=== PATIENT | male | born 1980 ===

== ENCOUNTER 2022-07-22 19:00 | Emergency (ER) | payer SELFPAY ==
[2022-07-22] VITALS (26 sets, daily range): BP systolic 125–209; BP diastolic 77–114; PULSE 86–133; RESP 11–33; TEMP 36.5; O2SAT 93–99; BMI 31.1
--- NOTE | 2022-07-22 18:57 | DI.RAD.S_ITS ---
PROCEDURE: XR ANKLE RT 2V INDICATIONS: injury TECHNIQUE: 2 views of the ankle were acquired. COMPARISON: None. FINDINGS: Bones: Fracture of the distal fibula above the syndesmosis. Fracture of the medial malleolus. Posterior malleolus fracture. There is severe lateral displacement of the talus in relation to the distal tibia. No suspicious bony lesions. Soft tissues: Tibiotalar joint effusion is present. Achilles tendon appears normal. IMPRESSION: Trimalleolar fracture with lateral displacement of the talus in relation to the distal tibia. Dictated by: Ole Coyne M.D. on 07/22/2022 at 19:53 Approved by: Ole Coyne M.D. on 07/22/2022 at 19:56
--- NOTE | 2022-07-22 19:28 | DI.RAD.S_ITS ---
PROCEDURE: XR ANKLE RT MIN 3V INDICATIONS: post reduction TECHNIQUE: 3 views of the ankle were acquired. COMPARISON: [facility], , XR ANKLE RT 2V, 07/22/2022, 19:09. FINDINGS: Bones: There is improved alignment status post closed reduction of the previously described trimalleolar right ankle fracture. External splint limits evaluation of fine bony detail. Soft tissues: External splint also limits evaluation of soft tissue detail. IMPRESSION: 1. Improved alignment status post closed reduction of previously described trimalleolar right ankle fracture. Dictated by: Abram Wild M.D. on 07/22/2022 at 22:05 Approved by: Abram Wild M.D. on 07/22/2022 at 22:06
[2022-07-22] MEDS: HYDROMORPHONE 0.5 MG INJ IV (19:44)
[2022-07-22] MEDS: KETAMINE 500 MG/5 ML INJ 105 MG IV (19:48)
--- NOTE | 2022-07-22 20:22 | ED.LOWEXIN ---
HPI - Extremity Injury (Lower) General Chief Complaint: Extremity Injury, Lower Stated Complaint: Ankle Dislocation Time Seen by Provider: 07/22/22 19:04 Source: EMS Mode of arrival: EMS History of Present Illness HPI Narrative: 42-year-old gentleman with no significant medical history was walking and tripped/stumbled rolled his foot and has an obvious dislocation with significant tenting in bruising to the lateral malleolus. Significant pain and tenderness is appreciated. He does have good capillary refill distally. He denies any recent fever, cough, cold, chills, abdominal pain, headaches, hip or knee pain or chronic problems. He has not been having any increasing weakness not notice that the foot has been dragging or numb. No headaches. Related Data Previous Rx's Medication Instructions Recorded oxycodone-acetaminophen 5 mg-325 1 tab PO Q6H PRN pain #20 tabs 07/22/22 mg tablet Allergies Allergy/AdvReac Type Severity Reaction Status Date / Time INGREDIENT: NO KNOWN - NO Allergy Unknown Uncoded 07/22/22 19:00 KNOWN DRUG ALLERGY Review of Systems Review of Systems Narrative: Remainder of complete review of systems is otherwise unremarkable except for that included in the HPI. Patient History Social History Smoking Status: Current every day smoker Smoking Status: Current every day smoker alcohol intake frequency: a few times a month Substance Use Type: marijuana Exam Initial Vital Signs Initial Vital Signs: Vital Signs Temperature 97.7 F 07/22/22 18:58 Pulse Rate 120 H 07/22/22 18:58 Respiratory Rate 16 07/22/22 18:58 Blood Pressure 195/111 H 07/22/22 18:58 Pulse Oximetry 96 07/22/22 18:58 Oxygen Delivery Method 07/22/22 18:58 General: In obvious distress but able to completely cooperate with exam. Well-nourished well-developed HEENT: Moist mucous membranes, normal sclera with reactive pupils, Respiratory: Lungs are clear to auscultation, no wheezing no rales no rhonchi. Full and symmetrical air movement Cardiac: Regular rate and rhythm no murmurs no bruits Abdomen: Soft, nontender, good bowel tones, no flank pain Skin: Warm and dry, no rashes Neurologic: Grossly neurologically intact with no obvious asymmetries or abnormalities Extremities: Significant deformity with what appears to be an obvious fracture dislocation right ankle with no injury to the knee or hip. Psych: Cooperative, appropriate insight and affect Procedures Orthopedic Fracture Reduction Right ankle: Time of procedure: 21:45 Time Out Performed: Yes Side: right Fracture Reduction Location: other (ankle, trimalleolar fracture) Analgesia: procedural sedation Technique: direct manipulation Post Reduction X-rays Demonstrate: anatomical reduction Post-reduction neuro exam: intact Post-reduction vascular exam: intact Splint Applied: Yes Patient Tolerated Procedure: Well Orthopedic Splinting/Casting Right ankle : Time of procedure: 21:33 Side: right Lower Extremity Injury Location: ankle Lower Extremity Immobilizer: posterior splint and stirrup splint Other Orthopedic Equipment: crutches Post splinting neuro exam: intact Post splinting vascular exam: intact Placed by: Provider Procedural Sedation Time of procedure: 21:45 Time out performed: Yes Indication: fracture/dislocation reduction ASA Class: II Time of Last PO Intake: 14:00 Preparation: desk monitor applied, pulse oximeter, capnometry used, supplemental O2 applied, suction/airway equipment at bedside and IV secured Ketamine dose (mg): 105 Intraservice time/total sedation time (min): 13 ED Sedation Level: Moderate (Concious) Patient Tolerated Procedure: Well Complications: none Course Orders Ordered: ED Orders 07/22/22 18:57 XR ankle RT 2V Stat 07/22/22 19:28 XR ankle RT min 3V Stat Hydromorphone HCl (Hydromorphone 0.5 Mg Inj) 0.5 mg IV Q15MIN PRN PRN Reason: Pain, Last Admin: 07/22/22 19:44 Dose: 0.5 mg Documented By: DARIN Discontinued Medications Ketamine HCl (Ketamine 500 Mg/5 Ml Inj) 105 mg 1 mg/kg (105 mg) IV NOW ONE Stop: 07/22/22 19:29 Last Admin: 07/22/22 19:48 Dose: 105 mg Documented By: DARIN Ondansetron HCl (Ondansetron 4 Mg/2 Ml Inj) 4 mg IV NOW ONE Stop: 07/22/22 19:19 Last Admin: 07/22/22 20:40 Dose: Not Given Documented By: DARIN Vital Signs Vital signs: Vital Signs - 8 hr 07/22/22 18:58 07/22/22 19:48 07/22/22 20:09 Temperature 97.7 F Pulse Rate 120 H 112 H 115 H Respiratory Rate 16 14 22 Blood Pressure 195/111 H 173/107 H Pulse Oximetry 96 99 99 Oxygen Delivery Method Room Air 07/22/22 20:10 07/22/22 20:10 07/22/22 19:53 Temperature Pulse Rate 111 H 133 H Respiratory Rate 18 33 H Blood Pressure 170/101 H 209/112 H Pulse Oximetry 98 93 Oxygen Delivery Method 07/22/22 19:58 07/22/22 19:05 07/22/22 20:00 Temperature Pulse Rate 128 H 123 H 131 H Respiratory Rate 15 12 24 Blood Pressure 184/114 H 171/102 H Pulse Oximetry 98 99 Oxygen Delivery Method 07/22/22 20:16 07/22/22 20:16 07/22/22 20:21 Temperature Pulse Rate 105 H Respiratory Rate 18 Blood Pressure 165/98 H 155/78 H Pulse Oximetry 97 Oxygen Delivery Method 07/22/22 20:21 07/22/22 20:26 07/22/22 20:26 Temperature Pulse Rate 108 H 99 H Respiratory Rate 17 11 L Blood Pressure 149/90 H Pulse Oximetry 97 98 Oxygen Delivery Method 07/22/22 20:30 07/22/22 20:30 Temperature Pulse Rate 103 H Respiratory Rate 17 Blood Pressure 151/98 H Pulse Oximetry 98 Oxygen Delivery Method MDM - Extremity Injury (Lower) Imaging Data X-ray right ankle: Radiologist's Impression: FINDINGS:? ? Bones:? Fracture of the distal fibula above the syndesmosis.? Fracture of the medial malleolus.? Posterior malleolus fracture.? There is severe lateral displacement of the talus in relation to the distal tibia.? No suspicious bony lesions.? ? Soft tissues:? Tibiotalar joint effusion is present.? Achilles tendon appears normal.? ? ? IMPRESSION:? Trimalleolar fracture with lateral displacement of the talus in relation to the distal tibia. ? Dictated by: Ole Coyne M.D. on 07/22/2022 at 19:53 ? ? Postreduction films show adequate anatomic alignment MDM Narrative Medical decision making narrative: Otherwise healthy 42-year-old gentleman tripped had an inversion injury to the ankle with a trimalleolar fracture dislocation. With conscious sedation it was reduced and splinted. Pain is controlled. Reviewed need for definitive treatment and orthopedic follow-up. Briefly discussed with Dr. Jones, orthopedist on-call who agrees with plan and home discharge with patient contacting the office tomorrow. Clear discussion with the patient that this is an unstable fracture, he cannot walk on it. He is given crutches and maneuvers nicely with them. Discussed adequate pain control elevation and ice. He is safe for home discharge Discharge Plan Departure Patient Disposition: Home Clinical Impression: Closed trimalleolar fracture of ankle Qualifiers: Encounter type: initial encounter Laterality: right Qualified Code(s): S82.851A - Displaced trimalleolar fracture of right lower leg, initial encounter for closed fracture Closed dislocation of ankle Qualifiers: Encounter type: initial encounter Laterality: right Qualified Code(s): S93.04XA - Dislocation of right ankle joint, initial encounter Instructions: DI for Ankle Fracture Activity Restrictions/Additional Instructions: Thank you for coming in today Your ankle was dislocated and also has 3 areas of broken bone. You tolerated the sedation well and the ankle looks much better after it is reduced and the splint is in place. This is still a very unstable fracture, do not try and walk on it. For definitive treatment you will need to follow-up with [facility] orthopedic Surgeons. Please call their office tomorrow at [phone]. Explained that you are in the emergency department, you had a ?trimalleolar ankle fracture dislocation, and need to be seen in follow-up for definitive treatment? Using 400 mg of ibuprofen (2 inpo-rqm-[id number] pills) and 1 Tylenol every 6 hours can be very helpful in controlling pain. For severe pain you can add a Percocet to this combination If you have new findings, pain cannot be controlled or additional concerns, please feel free to return to the emergency department Prescriptions: New oxycodone-acetaminophen 5-325 mg tablet 1 tab PO Q6H PRN (Reason: pain) Qty: 20 0RF Referrals: Med Jones MD [Physician] -
[2022-07-22] MEDS: OXYCODONE/APAP 5/325 PREPACK 1 BOTTLE MISC (21:36)
[2022-07-22] MEDS: OXYCODONE/ACETAMINOPHEN 5/325 TABLET 1 TAB PO (21:36)
[2022-07-22] MEDS: KETOROLAC 30 MG/ML VIAL 15 MG IV (21:36)
== END 2022-07-22 21:51 | disposition home or self-care (01) ==
PROVIDERS: Emergency Provider Emergency Medicine
DX: S82.851A Displaced trimalleolar fracture of right lower leg, initial encounter for closed fracture (principal); W01.0XXA Fall on same level from slipping, tripping and stumbling without subsequent striking against object, initial encounter
CPT/HCPCS: 27818; 73600; 73610; 96374; 96375; 99152; 99284; J1170; J1885

== ENCOUNTER → 2022-07-26 08:45 | Outpatient (CLI) | payer SELFPAY ==
--- NOTE | 2022-07-26 08:52 | DI.CT.S_ITS ---
PROCEDURE: CT LE RT WO CON INDICATIONS: CLOSED TRAUMATIC DISPLACED TRIMALLEOLAR FRACTURE TECHNIQUE: Noncontrast 1-1.5 mm axial sections acquired from above the tibiotalar joint to the bottom of the calcaneus, with coronal and sagittal reformats. COMPARISON: [facility], CR, XR ANKLE RT MIN 3V, 07/22/2022, 20:02. FINDINGS: Image quality: Excellent. Bones: Again noted is acute slightly comminuted oblique tear through distal fibular shaft with posterior and slight lateral displacement at fracture site and up to 6 mm diastasis. Additional smaller fractured fragments are seen displaced anterior and laterally. There is also a slightly comminuted and oblique fracture involving medial malleolus with fracture line extending to medial ankle mortise with minimal anterior and medial displacement at fracture site and up to 4 mm diastasis. Smaller medially displaced fractured fragments are noted within medial ankle mortise. A comminuted fracture is also noted involving posterior lateral aspect of distal tibia extending to posterior lateral distal tibial plafond with slight dorsal and lateral displacement at fracture site and up to 2 mm diastasis. No other fracture or dislocation is seen. No suspicious intraosseous lesion. Soft tissues: There is moderate tibiotalar joint effusion. No gross full-thickness ankle tendon rupture. Soft tissue edema and swelling surrounding ankle joint is seen. Achilles tendon is intact. No other abnormal soft tissue calcifications. IMPRESSION: 1. Acute comminuted and displaced trimalleolar fracture as described in detail above. 2. Moderate joint effusion and moderate ankle soft tissue swelling. Small displaced calcified fragments are noted within medial ankle mortise. Slight widening of medial and lateral ankle mortise. No full-thickness ankle tendon rupture. Dictated by: Champ Lynch M.D. on 07/26/2022 at 10:20 Approved by: Champ Lynch M.D. on 07/26/2022 at 10:41
== END ==
LOC: CT 08:50
PROVIDERS: Referring Provider Orthopaedic Surgery; Visit Provider Orthopaedic Surgery
DX: S82.851A Displaced trimalleolar fracture of right lower leg, initial encounter for closed fracture (principal)
CPT/HCPCS: 73700

== ENCOUNTER 2022-07-26 09:33 | Emergency (ER) | payer SELFPAY ==
[2022-07-26 10:04] VITALS: BP 125/98; PULSE 121; RESP 15; TEMP 36.1; O2SAT 99; BMI 31.1
--- NOTE | 2022-07-26 11:20 | PC.NURSE ---
went to lobby to bring pt into a room,unable to locate,will attempt again
--- NOTE | 2022-07-26 11:49 | ED.RECABL ---
HPI - Recheck/Abnormal Lab/Rx General Chief Complaint: Recheck/Abnormal Lab/Rx Stated Complaint: Needs med refill- clifford Montanez on Friday Time Seen by Provider: 07/26/22 10:01 Source: patient Mode of arrival: Ambulatory History of Present Illness HPI narrative: Patient is a 42-year-old male who was seen in the emergency department earlier this week with a right ankle injury. He has the splint that was placed during that visit in place. He was discharged home with pain medication. He has a follow-up with Orthopedics next week however he does not have any more pain medication. He is here for further pain medication. He states that his symptoms are controlled with the current pain regimen. He is no other specific complaints. Related Data Previous Rx's Medication Instructions Recorded oxycodone-acetaminophen 5 mg-325 1 tab PO Q6H PRN pain #20 tabs 07/22/22 mg tablet docusate sodium 100 mg capsule 100 mg PO DAILY #30 caps 07/26/22 (Colace) oxycodone-acetaminophen 5 mg-325 1 tab PO Q6H PRN pain #30 tabs 07/26/22 mg tablet (Percocet) Allergies Allergy/AdvReac Type Severity Reaction Status Date / Time No Known Drug Allergies Allergy Verified 07/26/22 10:04 Review of Systems Constitutional Comments: No fevers Musculoskeletal Comments: Right ankle injury Neurologic Comments: Denies new neurologic complaints Patient History Medical History Closed dislocation of ankle Closed trimalleolar fracture of ankle Social History Smoking Status: Current every day smoker Smoking Status: Current every day smoker alcohol intake frequency: a few times a month Substance Use Type: marijuana Exam Initial Vital Signs Initial Vital Signs: Vital Signs Temperature 96.9 F L 07/26/22 10:04 Pulse Rate 121 H 07/26/22 10:04 Respiratory Rate 15 07/26/22 10:04 Blood Pressure 125/98 H 07/26/22 10:04 Pulse Oximetry 99 07/26/22 10:04 Oxygen Delivery Method 07/26/22 10:04 HENMT Head: normal to inspection and normocephalic Neuro Other: Sensation intact to the toes that are exposed on the right foot Extrem Other: Right ankle in splint that appears well Course Vital Signs Vital signs: Vital Signs - 8 hr 07/26/22 10:04 Temperature 96.9 F L Pulse Rate 121 H Respiratory Rate 15 Blood Pressure 125/98 H Pulse Oximetry 99 Oxygen Delivery Method Room Air MDM - Recheck/Abnormal Lab/Rx MDM Narrative Medical decision making narrative: Patient reports no new complaints. He states that his current pain regimen is working for him. I will refill his pain medicine as he does have a follow-up with Orthopedics next week. He was given return precautions. Expressed understanding and agreement. Discharge Plan Departure Patient Disposition: Home Clinical Impression: Encounter for medication refill Activity Restrictions/Additional Instructions: Be sure to keep your follow-up appointment next week with Orthopedics. Use your crutches. Your to be nonweightbearing on your right leg. Keep it elevated as much as possible. Pain medication was transmitted to [facility] along with a stool softener. Return to the emergency department for any new or worsening symptoms. Prescriptions: New oxycodone-acetaminophen [Percocet] 5-325 mg tablet 1 tab PO Q6H PRN (Reason: pain) Qty: 30 0RF docusate sodium [Colace] 100 mg capsule 100 mg PO DAILY Qty: 30 0RF No Action oxycodone-acetaminophen 5-325 mg tablet 1 tab PO Q6H PRN (Reason: pain) Qty: 20 0RF Visit Report Forms: Patient Portal/API
== END 2022-07-26 12:03 | disposition home or self-care (01) ==
PROVIDERS: Emergency Provider Emergency Medicine
DX: Z76.0 Encounter for issue of repeat prescription (principal)
CPT/HCPCS: 99281

== ENCOUNTER 2022-08-10 14:13 | Emergency (ER) | payer SELFPAY ==
--- NOTE | 2022-08-10 14:26 | DI.RAD.S_ITS ---
PROCEDURE: XR ANKLE RT MIN 3V INDICATIONS: ankle fracture TECHNIQUE: 3 views of the ankle were acquired. COMPARISON: [facility], CT, CT LE RT WO CON, 07/26/2022, 8:55. [facility], CR, XR ANKLE RT MIN 3V, 07/22/2022, 20:02. FINDINGS: Bones: Oblique fracture through the fibula as well as a medial malleolar fracture disrupts the ankle mortise with medial widening. Posterior malleolar fractures better depicted on the prior CT Soft tissues: No tibiotalar joint effusion. Achilles tendon appears normal. IMPRESSION: 1. Trimalleolar fracture appears displaced compared to the prior now with medial ankle mortise widening 2. Lateral soft tissue swelling Approved by: Romaine Glynn M.D. on 08/10/2022 at 15:17
[2022-08-10 14:28] VITALS: BP 169/75; PULSE 110; RESP 16; TEMP 36.9; O2SAT 99; BMI 29.2
--- NOTE | 2022-08-10 14:38 | ED_ITS ---
HPI - Extremity Injury (Lower) General Chief Complaint: Extremity Injury, Lower Stated Complaint: needs xray of rt foot & prescription for pain meds Time Seen by Provider: 08/10/22 14:15 Source: patient Mode of arrival: Family Vehicle Limitations: no limitations History of Present Illness HPI Narrative: Patient is a 42-year-old male who 3 months ago sustained a right-sided trimalleolar fracture. Was seen in the emergency department. Was reduced in had a splint placed. Had a CT scan. Did have an appointment follow-up with orthopedics. Was seen 1 other time afterwards for continued pain control by myself. Apparently the patient attempted follow-up with orthopedics however he does not have insurance and does not have money. The decision was made for him to manage this nonoperatively. He is since followed up at the walk-in clinic. He had the posterior splint transition to a boot because of the discomfort the splint was causing. He states he has not been walking on his ankle. He is here because they told him he needed a repeat x-ray and for pain medication. He has no primary care doctor. He arrives with crutches Related Data Previous Rx's Medication Instructions Recorded oxycodone-acetaminophen 5 mg-325 1 tab PO Q6H PRN pain #20 tabs 07/22/ mg tablet docusate sodium 100 mg capsule 100 mg PO DAILY #30 caps 07/26/22 (Colace) oxycodone-acetaminophen 5 mg-325 1 tab PO Q6H PRN pain #30 tabs 07/26/22 mg tablet (Percocet) oxycodone-acetaminophen 5 mg-325 1 tab PO Q8H PRN pain #10 tabs 08/01/22 mg tablet oxycodone-acetaminophen 5 mg-325 1 tab PO Q8H PRN pain #20 tabs 08/10/22 mg tablet (Percocet) Allergies Allergy/AdvReac Type Severity Reaction Status Date / Time No Known Drug Allergies Allergy Verified 07/26/22 10:04 Review of Systems Constitutional Constitutional: Denies fever(s) Musculoskeletal Musculoskeletal: Reports system reviewed and no additional complaints, except as documented Integumentary/Breasts Skin/Breast: Reports system reviewed and no additional complaints, except as documented Neurologic Neurologic: Reports system reviewed and no additional complaints, except as documented Hematologic/Lymphatic On Anticoagulants: No Patient History Medical History Closed dislocation of ankle Closed trimalleolar fracture of ankle Social History Smoking Status: Current every day smoker alcohol intake: current Smoking Status: Current every day smoker alcohol intake frequency: a few times a month Substance Use Type: marijuana Exam Initial Vital Signs Initial Vital Signs: Vital Signs Temperature 98.4 F 08/10/22 14:28 Pulse Rate 110 H 08/10/22 14:28 Respiratory Rate 16 08/10/22 14:28 Blood Pressure 169/75 H 08/10/22 14:28 Pulse Oximetry 99 08/10/22 14:28 Oxygen Delivery Method 08/10/22 14:28 HENPR Head: normal to inspection and normocephalic Resp Effort & Inspection: normal respiratory effort Cardio Rate: regular rate Pulses: dorsalis pedis present on the right Skin Other: No blisters or bruising to the right lower extremity Neuro General: patient alert and patient awake Sensory Exam: no sensory deficits noted Extrem Other: Mild swelling to the ankle in the foot. Right toes unremarkable. No proximal fibula tenderness. Course Orders Ordered: ED Orders 08/10/22 14:26 XR ankle RT min 3V Stat 08/10/22 14:28 Consult to [facility] - Casting Machine Operator Stat 08/10/22 14:29 Consult to [facility] - Casting Machine Operator Stat Vital Signs Vital signs: Vital Signs - 8 hr 08/10/22 14:28 Temperature 98.4 F Pulse Rate 110 H Respiratory Rate 16 Blood Pressure 169/75 H Pulse Oximetry 99 Oxygen Delivery Method Room Air MDM - Extremity Injury (Lower) Imaging Data Extremity x-ray #1: My Impression: Trimalleolar fracture MDM Narrative Medical decision making narrative: Patient is neurovascularly intact. He does have swelling of his right ankle but the skin appears intact. There is no blistering. Very minor bruising on the bottom of the foot. Initially the report was that the patient did not follow-up with orthopedics because he did not have insurance. After further discussion it appears that he wanted to let the ankle ?heal on its own ?and was not interested in surgery so he never followed up with Orthopedics. He does admit that he does not have insurance. He has applied for [facility] here in [place] but he stated that he was denied. Social work was involved and we feel that he does qualify for this so he will re-attempt the application at the beginning of next week. He does have crutches in a walking boot as he stated the walking boot was more comfortable than the posterior splint. I did inform him that he can not walk on his leg and he stated that he has not been walking. We discussed the limitations of splinting and the boot. Had a very long discussion with him regarding his injury. We discussed that his ankle would eventually heal however it is most likely going to heal in a abnormal position. We discussed the difficulties with this to include chronic pain, instability, problems with mobility. Informed him that surgery would help minimize these potential issues. He expressed understanding of this. He stated that he would contact the [facility] doctors for follow-up. I informed him that if he did not want surgery a cast be more appropriate than the boot wear the splint. He is also asking for more pain medication. He obviously has an issue that would cause him discomfort. I told him that I would refill his pain medication but only for short period of time. I told him that the emergency department can not provide long-term pain management for this issue. He expressed understanding. Discharge Plan Departure Patient Disposition: Home Clinical Impression: Closed trimalleolar fracture Instructions: DI for Ankle Fracture Activity Restrictions/Additional Instructions: Do not walk on your right leg. The x-ray today shows that you still have the ankle fracture. Keep the boot in place. Use the crutches. Like we discussed it is important that you follow-up with the orthopedic providers because the injury that you have is a surgical issue. Without surgery your most likely going to have issues with chronic pain, mobility, instability. Surgery will help decrease the likelihood of these long-term issues. Unfortunately the emergency department can not provide long-term pain control even though you do have a fractured ankle. This would need to come from either the orthopedic doctors or primary doctor. Myself and social work feel that you do qualify for Medicaid/[employer]. I recommend that you re-attempt to apply for this at the beginning of the week. Prescriptions: New oxycodone-acetaminophen [Percocet] 5-325 mg tablet 1 tab PO Q8H PRN (Reason: pain) Qty: 20 0RF No Action oxycodone-acetaminophen 5-325 mg tablet 1 tab PO Q8H PRN (Reason: pain) Qty: 10 0RF oxycodone-acetaminophen 5-325 mg tablet 1 tab PO Q6H PRN (Reason: pain) Qty: 20 0RF oxycodone-acetaminophen [Percocet] 5-325 mg tablet 1 tab PO Q6H PRN (Reason: pain) Qty: 30 0RF docusate sodium [Colace] 100 mg capsule 100 mg PO DAILY Qty: 30 0RF Referrals: Miscellaneous,Doctor, MD [Primary Care Provider] -
--- NOTE | 2022-08-10 15:00 | CM.SWNOTE ---
[employer] Note [employer] receives consult for patient due to patient not having insurance. Patient is 42 y/o male who presents to ED due to concern for recent ankle fracture and dislocation on 07/22/22. Patient was recommended for Orthopedic surgery f/u but patient has yet to follow through with recommendation. Patient does not have a PCP and patient is self pay. Patient endorses he is not interested in a PCP unless he gets insurance and patient denies significant medical hx. [employer] enters room to meet with patient, patient endorses interest in getting support getting insurance. Patient endorses he applied for [employer] plan finder state insurance but reports that he was denied. [employer] attempts to sign patient up for insurance on website but is unable to due to patient's current account. [employer] informs patient of this and provides phone numbers to call to get assistance in signing up for state insurance. Patient filled out hospital financial assistance packet upon registration to ED and reports his average monthly income is $1000 a month. [employer] asks about Orthopedic f/u and patient endorses he prefers not to get surgery and for his ankle to heal naturally. Patient endorses his pain has been managed with over the counter pain medication and prescribed pain medication. [employer] asks if there is anything further that [employer] can assist patient with and patient denies any further assistance. [employer] reviews this with ED provider Dr. Garcia. Plan: Patient to d/c to home upon medical clearance with continued recommendation for outpatient surgery, patient to contact [facility] plan finder customer service via phone for assistance in signing up for state insurance. RACHAEL Schmidt
== END 2022-08-10 16:31 | disposition home or self-care (01) ==
PROVIDERS: Emergency Provider Emergency Medicine
DX: S82.851G Displaced trimalleolar fracture of right lower leg, subsequent encounter for closed fracture with delayed healing (principal)
CPT/HCPCS: 73610; 99283

== ENCOUNTER 2022-08-20 08:28 | Emergency (ER) | payer SELFPAY ==
[2022-08-20 09:02] VITALS: BP 145/93; PULSE 112; RESP 16; TEMP 36.9; O2SAT 96; BMI 31.1
--- NOTE | 2022-08-20 10:52 | ED_ITS ---
HPI - Recheck/Abnormal Lab/Rx General Chief Complaint: Recheck/Abnormal Lab/Rx Stated Complaint: Needs med refilled Time Seen by Provider: 08/20/22 10:52 History of Present Illness HPI narrative: Patient is a 42-year-old male who was stained a right trimalleolar fracture 07/22/2022. Seen and evaluated here. He was supposed to follow-up with orthopedics. However he did not follow-up with orthopedics he has since been back to the emergency department twice on July 26 and August 10 for pain medication refill. on he had an x-ray.. He was told that he might need to go see pain management he has yet to see Orthopedics. X-ray on the . X- ray on the showed displaced compared to previous. He was given pain medication and wants more pain medicine. He has yet to follow up he does not appear to have any plan to follow-up with orthopedics. Related Data Previous Rx's Medication Instructions Recorded oxycodone-acetaminophen 5 mg-325 1 tab PO Q6H PRN pain #20 tabs 07/22/22 mg tablet docusate sodium 100 mg capsule 100 mg PO DAILY #30 caps 07/26/22 (Colace) oxycodone-acetaminophen 5 mg-325 1 tab PO Q6H PRN pain #30 tabs 07/26/22 mg tablet (Percocet) oxycodone-acetaminophen 5 mg-325 1 tab PO Q8H PRN pain #10 tabs 08/01/22 mg tablet oxycodone-acetaminophen 5 mg-325 1 tab PO Q8H PRN pain #20 tabs 08/10/22 mg tablet (Percocet) Allergies Allergy/AdvReac Type Severity Reaction Status Date / Time No Known Drug Allergies Allergy Verified 07/26/22 10:04 Review of Systems Review of Systems Narrative: GENERAL: Denies chills,fever HEENT: Denies throat pain RESPIRATORY: Denies dyspnea, cough, wheezing CARDIOVASCULAR: Denies chest pain, palpitations GASTROINTESTINAL: Denies nausea, vomiting MUSCULOSKELETAL: see HPI SKIN: No rash, no laceration, no pruritus NEUROLOGIC: Denies weakness, dizziness, headache, numbness 8 point review of systems is negative except for those stated above and HPI Patient History Medical History Closed dislocation of ankle Closed trimalleolar fracture of ankle Social History Smoking Status: Current every day smoker alcohol intake: current Smoking Status: Current every day smoker alcohol intake frequency: a few times a month Substance Use Type: marijuana Exam Initial Vital Signs Initial Vital Signs: Vital Signs Temperature 98.4 F 08/20/22 09:02 Pulse Rate 112 H 08/20/22 09:02 Respiratory Rate 16 08/20/22 09:02 Blood Pressure 145/93 H 08/20/22 09:02 Pulse Oximetry 96 08/20/22 09:02 Oxygen Delivery Method 08/20/22 09:02 GENERAL: Well-appearing, well-nourished and in no acute distress. CARDIOVASCULAR: peripheral pulses in tact, cap refill <2 sec RESPIRATORY: No respiratory distress, speaks in full sentences without difficulty EXTREMITIES: Normal range of motion, no clubbing or edema. Neurovascularly intact Right ankle improving toes NEUROLOGICAL: Cranial nerves II through XII grossly intact. Normal gait and speech. SKIN: Warm, dry, no petechiae, no rashes or lesions. Course Vital Signs Vital signs: Vital Signs - 8 hr 08/20/22 09:02 Temperature 98.4 F Pulse Rate 112 H Respiratory Rate 16 Blood Pressure 145/93 H Pulse Oximetry 96 Oxygen Delivery Method Room Air MDM - Recheck/Abnormal Lab/Rx MDM Narrative Medical decision making narrative: Patient is offered a repeat x-ray prior x-ray does show displaced fracture. His he does not want an x-ray he only wants pain medication refilled. He has not seen orthopedics in over a month. He understands that if his the does not have surgery this is not going to heal properly. And I will not continue to refill his pain medication if he does not follow-up with orthopedics and get the proper treatment at this inury needs. Patient left prior to his discharge instruction Discharge Plan Departure Patient Disposition: Home Clinical Impression: Closed trimalleolar fracture Prescriptions: No Action oxycodone-acetaminophen 5-325 mg tablet 1 tab PO Q8H PRN (Reason: pain) Qty: 10 0RF oxycodone-acetaminophen 5-325 mg tablet 1 tab PO Q6H PRN (Reason: pain) Qty: 20 0RF oxycodone-acetaminophen [Percocet] 5-325 mg tablet 1 tab PO Q6H PRN (Reason: pain) Qty: 30 0RF docusate sodium [Colace] 100 mg capsule 100 mg PO DAILY Qty: 30 0RF oxycodone-acetaminophen [Percocet] 5-325 mg tablet 1 tab PO Q8H PRN (Reason: pain) Qty: 20 0RF Referrals: [facility] [Provider Group]
== END 2022-08-20 11:00 | disposition home or self-care (01) ==
PROVIDERS: Emergency Provider Emergency Medicine
DX: Z76.0 Encounter for issue of repeat prescription (principal); S82.851A Displaced trimalleolar fracture of right lower leg, initial encounter for closed fracture; X58.XXXA Exposure to other specified factors, initial encounter
CPT/HCPCS: 99281

== ENCOUNTER 2022-08-22 10:30 | Emergency (ER) | payer SELFPAY ==
[2022-08-22 10:35] VITALS: BP 164/101; PULSE 126; RESP 14; TEMP 35.9; O2SAT 95; BMI 31.1
--- NOTE | 2022-08-22 11:16 | ED_ITS ---
HPI - Recheck/Abnormal Lab/Rx General Chief Complaint: Recheck/Abnormal Lab/Rx Stated Complaint: Needs med refill Time Seen by Provider: 08/22/22 11:08 Source: patient Mode of arrival: Ambulatory Limitations: no limitations History of Present Illness HPI narrative: Patient is a 42-year-old male. Approximately 1 month ago sustained a trimalleolar fracture. Have seen him multiple times here in the emergency depar tment for medication refills. He has been here most recently and saw another provider who declined to refill his medications. He states he continues to not walk on his right leg. He states he is tried to contact the orthopedic department multiple times but has not received a phone call back. He has not followed through with completing his application for insurance. He has not made any attempts to contact a primary care provider. He is here for a medication refill Related Data Previous Rx's Medication Instructions Recorded oxycodone-acetaminophen 5 mg-325 1 tab PO Q6H PRN pain #20 tabs 07/22/22 mg tablet docusate sodium 100 mg capsule 100 mg PO DAILY #30 caps 07/26/22 (Colace) oxycodone-acetaminophen 5 mg-325 1 tab PO Q6H PRN pain #30 tabs 07/26/22 mg tablet (Percocet) oxycodone-acetaminophen 5 mg-325 1 tab PO Q8H PRN pain #10 tabs 08/01/22 mg tablet oxycodone-acetaminophen 5 mg-325 1 tab PO Q8H PRN pain #20 tabs 08/10/ mg tablet (Percocet) Allergies Allergy/AdvReac Type Severity Reaction Status Date / Time No Known Drug Allergies Allergy Verified 08/22/22 10:35 Review of Systems Musculoskeletal Musculoskeletal: Reports system reviewed and no additional complaints, except as documented Integumentary/Breasts Skin/Breast: Reports system reviewed and no additional complaints, except as documented Neurologic Neurologic: Reports system reviewed and no additional complaints, except as documented Patient History Medical History Closed dislocation of ankle Closed trimalleolar fracture of ankle Social History Smoking Status: Current every day smoker alcohol intake: current Smoking Status: Current every day smoker alcohol intake frequency: a few times a month Substance Use Type: marijuana Exam Initial Vital Signs Initial Vital Signs: Vital Signs Temperature 96.6 F L 08/22/22 10:35 Pulse Rate 126 H 08/22/22 10:35 Respiratory Rate 14 08/22/22 10:35 Blood Pressure 164/101 H 08/22/22 10:35 Pulse Oximetry 95 08/22/22 10:35 Oxygen Delivery Method 08/22/22 10:35 Const General: cooperative and healthy appearing [facility] Head: normal to inspection Cardio Pulses: dorsalis pedis present on the right Skin General: no rashes or lesions noted Neuro Sensory Exam: no sensory deficits noted Extrem Other: Minimal if any swelling to the right lower extremity. Sensation intact. His right lower extremity is in a walking boot. Course Orders Ordered: ED Orders 08/22/22 11:59 Consult to [employer] Consult[employer] Stat Vital Signs Vital signs: Vital Signs - 8 hr 08/22/22 10:35 Temperature 96.6 F L Pulse Rate 126 H Respiratory Rate 14 Blood Pressure 164/101 H Pulse Oximetry 95 Oxygen Delivery Method Room Air MDM - Recheck/Abnormal Lab/Rx MDM Narrative Medical decision making narrative: Patient is neurovascularly intact. He has approximately 1 month since his injury. He was informed that we can not refill his pain medication any longer out of the emergency department. We attempted to contact the Orthopedic Department here locally who reported to us that they have a note in their system that states that the foot and ankle specialist has refused to see the patient because of his initial denial of wanting surgery. Had a discussion with the [facility] [employer] regarding this. I informed him that I could give him the contact information for another orthopedic group up in [place]. Also informed him that he could contact the [facility] group once again to try to see if they will see him. He understands that there is not much more that we can do in the emergency department with regard to his insurance and he needs to contact the state in order to finish establishing this. He expressed understanding of all of this. He was told to wait in the room in order to get the information for the new orthopedic group however the patient left prior to being formally discharged. Discharge Plan Departure Patient Disposition: Left Against Medical Advice Clinical Impression: Closed trimalleolar fracture, Left against medical advice Prescriptions: No Action oxycodone-acetaminophen 5-325 mg tablet 1 tab PO Q8H PRN (Reason: pain) Qty: 10 0RF oxycodone-acetaminophen 5-325 mg tablet 1 tab PO Q6H PRN (Reason: pain) Qty: 20 0RF oxycodone-acetaminophen [Percocet] 5-325 mg tablet 1 tab PO Q6H PRN (Reason: pain) Qty: 30 0RF docusate sodium [Colace] 100 mg capsule 100 mg PO DAILY Qty: 30 0RF oxycodone-acetaminophen [Percocet] 5-325 mg tablet 1 tab PO Q8H PRN (Reason: pain) Qty: 20 0RF Stand Alone Forms: Against Medical Advice
--- NOTE | 2022-08-22 11:26 | PC.NURSE ---
pt continues to wear his boot and states he doesn't put weight on it. pt states ortho wont see him due to insurance.
== END 2022-08-22 12:12 | disposition left against medical advice (07) ==
PROVIDERS: Emergency Provider Emergency Medicine
DX: S82.851G Displaced trimalleolar fracture of right lower leg, subsequent encounter for closed fracture with delayed healing (principal)
CPT/HCPCS: 99281